=== PATIENT | male | born 1985 | race African-American/Black ===

== ENCOUNTER 2020-12-01 10:45 | Emergency (ER) | payer MEDICAID ==
[~2020-12-01] VITALS: Ht 185.4 cm; Wt 87.1 kg
[2020-12-01 10:55] VITALS: BP 124/72
--- NOTE | 2020-12-01 10:56 | NUR ---
ED Nurse Note: Pt came in to ED from home d/t oral pain on the lower area for 3 days. Pt is AOx4, calm and cooperative to care, VSS, on RA, afebrile on triage.
[2020-12-01] MEDS ORDERED: AUGMENTIN 875-1 EAC1 ORAL (11:15)
[2020-12-01] MEDS ORDERED: ACETAMINOPHEN-1 EAC1 ORAL (11:15)
[2020-12-01 11:24] VITALS: BP 126/74
--- NOTE | 2020-12-01 11:24 | NUR ---
ER DISCHARGE NOTE: Patient is cleared to be discharged per ERMD, pt is aox4, on room air, with stable vital signs. pt was given dc and prescription instructions, pt was able to verbalize understanding, pt id band removed. pt is able to ambulate with steady gait. pt took all belongings.
--- NOTE | 2020-12-01 12:42 | Emergency Room Report ---
History of Present Illness General Chief Complaint: Toothache Source: Patient Present Illness HPI 35-year-old male presents to ED for tooth pain. Notes pain to his left lower jaw x1 week. States his tooth cracked about 1 week prior has not seen a dentist yet. Denies fevers or chills. His pain is dull, 9 out of 10, nonradiating. No other aggravating relieving factors. Denies any other associated symptoms Allergies: Coded Allergies: ASPIRIN (Verified Allergy, Unknown, 12/01/20) COVID-19 Screening Contact w/high risk pt: No Experienced COVID-19 symptoms?: No COVID-19 Testing performed MAKE UP MAN: No Patient History Past Medical History: none Past Surgical History: none Pertinent Family History: none Social History: Denies: smoking, alcohol use, drug use Immunizations: UTD Reviewed Nursing Documentation: PMH: Agreed; PSxH: Agreed Nursing Documentation-PMH Past Medical History: No Stated History Review of Systems All Other Systems: negative except mentioned in HPI Physical Exam Vital Signs Date Time Temp Pulse Resp B/P (MAP) Pulse Ox O2 Delivery O2 Flow Rate FiO2 12/01/20 10:50 98.1 69 18 124/72 (89) 99 Room Air Sp02 EP Interpretation: reviewed, normal General Appearance: no apparent distress, alert, GCS 15, non-toxic Head: normocephalic, atraumatic Eyes: bilateral eye normal inspection, bilateral eye PERRL ENT: hearing grossly normal, normal pharynx, no angioedema, normal voice, other - pain in L lower jaw. erythema to gums. teeth missing Neck: full range of motion, supple/symm/no masses Respiratory: chest non-tender, lungs clear, normal breath sounds, speaking full sentences Cardiovascular #1: regular rate, rhythm, no edema Cardiovascular #2: 2+ carotid (R), 2+ carotid (L), 2+ radial (R), 2+ radial (L), 2+ dorsalis pedis (R), 2+ dorsalis pedis (L) Gastrointestinal: normal bowel sounds, non tender, soft, non-distended, no guarding, no rebound Rectal: deferred Genitourinary: normal inspection, no CVA tenderness Musculoskeletal: back normal, normal range of motion, gait/station normal, non- tender Neurologic: alert, motor strength/tone normal, oriented x3, sensory intact, responsive, speech normal Psychiatric: judgement/insight normal, memory normal, mood/affect normal, no suicidal/homicidal ideation Reflexes: 3+ bicep (R), 3+ bicep (L), 3+ tricep (R), 3+ tricep (L), 3+ knee (R), 3+ knee (L) Lymphatic: no adenopathy Medical Decision Making Diagnostic Impression: Primary Impression: Toothache ER Course 35-year-old male presents with tooth pain Cracked tooth, dental abscess, cavity Patient placed on stretcher. After initial history, physical exam reveals a male in mild distress. The gum in the left lower jaw shows swelling and eryt shawn. No discharge. Discussed findings with patient. Will discharge home with pain meds and antibiotics. Safe for discharge with close outpatient follow-up. I will provide dental referrals Diagnosis- toothache Stable and discharged to home prescription for tylenol #3, Augmentin. Instructed to see dentist as a walk-in this week. Return to ED if symptoms recur or worse Last Vital Signs Date Time Temp Pulse Resp B/P (MAP) Pulse Ox O2 Delivery O2 Flow Rate FiO2 12/01/20 11:24 98.1 19 126/74 100 Room Air 12/01/20 10:50 69 Status: improved Disposition: HOME, SELF-CARE Condition: Stable Scripts Acetaminophen With Codeine (T#3) (TYLENOL #3 TAB*) Y Tab 1 TAB ORAL Q8H PRN for For Pain, #20 TAB Prov: Jay Haney MD 12/01/20 Amoxicillin/Potassium Clav 875-125* (AUGMENTIN 875-125 TABLET*) 1 Each Tablet 1 TAB ORAL TWICE A DAY, #14 TAB Prov: Jay Haney MD 12/01/20 Referrals: [facility](age 2-12) - Orthodontic Clinic - Hours: Mon,Fri,, 8:15am and 1pm (new patient screening), Tu. 1pm. Emergency clinic Friday - Friday 8:30am and 1pm, Tu. 1pm. *Call to check if clinic is open; No appointment necessary for the first visit (new patient screening), Arrive 15-30 minutes early as it is first come, first serve. [facility] INFO: New Patient Screening: Mon-Thurs 8am-1pm Mon- Thurs 9am -5pm and Fri 2pm-5pm Patient Instructions: Dental Pain Jay Haney MD Dec 01, 2020 12:42
== END 2020-12-01 11:25 | disposition home or self-care (01) ==
LOC: EMR 11:10
DX: K08.89 Other specified disorders of teeth and supporting structures (principal); Z88.6 Allergy status to analgesic agent
CPT/HCPCS: 99282